=== PATIENT | female | born 1945 | race Caucasian/White ===

== ENCOUNTER 2016-05-22 16:03 | Emergency (ER) | payer BC, MEDICARE ==
[2016-05-22] MEDS ORDERED: IBUPROFEN 600 MG STARTER PACK 4 TAB BTL PO STA (16:51)
[2016-05-22] MEDS ORDERED: IPRATROPIUM-ALBUTEROL 3 ML NEB INHALATION STA (16:51)
--- NOTE | 2016-05-22 17:06 | ED ---
General Adult HPI - General Chief complaint: Shortness of Breath Stated complaint: chest pain/poss pneumonia-sent by Time Seen by Provider: 05/22/16 16:16 Source: patient, family, RN notes reviewed Mode of arrival: wheelchair Limitations: no limitations - History of Present Illness Initial comments: Chief complaint and history of present illness this is a 71-year-old female here with her . She was sent emergency room by her family physician for an x-ray to rule out pneumonia. The patient's been on Augmentin for approximately a week because of an upper respiratory tract infection and sinus infection. Patient also reports that she fell 4 days ago on her right side but started complaining of pain 2 days ago on her left anterior chest wall. No loss of consciousness. - Related Data Home Medications Medication Instructions Recorded Confirmed Amoxic-Pot Clav 500-125 mg 1 tab PO Q12HR 05/22/16 05/22/16 [Augmentin 500-125 mg] Citalopram Hydrobromide [CeleXA] 40 mg PO DAILY 05/22/16 05/22/16 Dicyclomine [Bentyl] 20 mg PO BID 05/22/16 05/22/16 Multivitamin [Multivitamins Adult 1 tab PO DAILY 05/22/16 05/22/16 Gummies] QUEtiapine [SEROquel] 50 mg PO HS 05/22/16 05/22/16 guaiFENesin [Mucinex] 600 mg PO BID PRN 05/22/16 05/22/16 Previous Rx's Medication Instructions Recorded Azithromycin [Zithromax Z-pack] 250 mg PO DIRECTED #6 tab 05/22/16 Ibuprofen [Motrin] 600 mg PO Q6HR PRN #20 tab 05/22/16 Allergies Allergy/AdvReac Type Severity Reaction Status Date / Time No Known Allergies Allergy Verified 05/22/16 16:47 Review of Systems ROS Statement: Those systems with pertinent positive or pertinent negative responses have been documented in the HPI. Review of systems. No headache at this time no stiff neck. She has anterior chest wall pain on the right side. Increases with twisting turning palpation and coughing. No bruises noted early shingles was discussed. Patient does a productive sounding cough no GI/ problems. No neuro deficits. All systems are reviewed. Past medical problems significant for having used a nebulizer years ago but the machine broke. Denies a diagnosis of asthma or COPD but she is wheezing. The patient's other medical problems include GERD, pneumonia and sinus problems. Patient's surgeries include back surgery, cholecystectomy, hysterectomy. She's had EGD and colonoscopy. Other surgeries include a lung biopsy for benign entity. She's had arthroscopic surgery for knee and shoulder. In surgery on her left wrist as well. She denies any ALLERGIES she does smoke strongly encouraged stop his alcohol socially. ROS Other: All systems not noted in ROS Statement are negative. Past Medical History Past Medical History: GERD/Reflux, Pneumonia Additional Past Medical History / Comment(s): SINUS PROBLEMS,DIVERTICULOSIS, VENTRAL HERNIA,OSTEOPOROSIS, GOITER, DDD, History of Any Multi-Drug Resistant Organisms: C-DIFF, ESBL Date of last positivie culture/infection: 01/01/15 ESBL Ecoli; 12/10/14 C.diff- now clear MDRO Source:: Urine ESBL; STOOL-C.diff Past Surgical History: Back Surgery, Cholecystectomy, Hysterectomy Additional Past Surgical History / Comment(s): EGD/COLONOSCOPY, SINUS/NASAL SX, LT SHOULDER SX FOR TORN LIGAMENT, RT KNEE ARTHROSCOPY, LT CARPAL TUNNEL, LUNG BX -NEG, LT WRIST AND TENDON REPAIR POST BREAK.UMBILCAL HERNIA REPAIR, JENNY CATARACTS, 01-01-15 laprascopic ventral hernia repair with mesh Past Anesthesia/Blood Transfusion Reactions: No Reported Reaction Additional Past Anesthesia/Blood Transfusion Reaction / Comment(s): had severe itching after anesthesia with hernia surgery in Dec 2014 Past Psychological History: Anxiety Additional Psychological History / Comment(s): STATES NO PROBLEMS WITYH DEPRESSION AT THIS TIME Smoking Status: Current every day smoker Past Alcohol Use History: None Reported Additional Past Alcohol Use History / Comment(s): HAS SMOKED FOR 50 PLUS YEARS 1PPD, SMOKING CESSATION BOOKLET GIVEN Past Drug Use History: None Reported - Past Family History Father History Unknown: Yes Mother Family Medical History: Dementia, Hypertension General Exam - General Exam Comments Initial Comments: General: The patient is awake and alert, right anterior chest pain with twisting turning coughing and palpation ongoing for 2 days. Vital signs Eye: Pupils are equal, round and reactive to light, extra-ocular movements are intact ; there is normal conjunctiva bilaterally. No signs of icterus. Ears, nose, mouth and throat: There are moist mucous membranes and no oral lesions. Complains of left ear pain no pain with pulling on the ear lobe. Extremely small aural canals. Congenital. Neck: The neck is supple, there is no tenderness . Cardiovascular: There is a regular rate and rhythm. No murmur, rub or gallop is appreciated. Respiratory: Wheezing slightly, right anterior chest wall pain increases with coughing and palpation decreases with splinting. Skin examined no evidence of rash typical of shingles though early shingles was discussed patient is advised to watch closely for changes in the skin over the next week or more. Gastrointestinal: Soft, non-distended, non-tender abdomen without masses or organomegaly noted. There is no rebound or guarding present. No CVA tenderness. Bowel sounds are unremarkable. Back: There is no tenderness to palpation in the midline. There is no obvious deformity. No rashes noted. Musculoskeletal: Normal ROM, no tenderness, There is no pedal edema. There is no calf tenderness or swelling. Sensation intact. Pulses equal bilaterally 2+. Neurological: No neuro deficits Skin: Skin is warm and dry and no rashes or lesions are noted. Early shingles discussed Limitations: no limitations Course Vital Signs 05/22/16 05/22/16 05/22/16 16:08 17:15 17:21 Temperature 99.2 F Pulse Rate 82 68 69 Respiratory 20 Rate Blood Pressure 140/71 O2 Sat by Pulse 98 Oximetry 05/22/16 17:39 Temperature Pulse Rate 72 Respiratory 18 Rate Blood Pressure 143/70 O2 Sat by Pulse 96 Oximetry EKG Findings - EKG Comments: EKG Findings:: EKG was done and reviewed at 1619 showing normal sinus rhythm no acute ST elevation no ectopy no ischemic changes. Rate 73 MI interval 134 QRS [address] Robertson Medical Decision Making - Medical Decision Making Influenza A and B are negative. Chest x-ray was done radiologist reviewed the x-rays his final impression is negative right rib exam. Chest is stable compared to 02/24/2011. As read by Dr. Montez I discussed with the patient and costochondritis, or early pain from shingles. She will watch closely for any rash. She replaced on ibuprofen for pain. She does state splinting the area when coughing and deep breathing helps control the pain. Advised take frequent deep breaths report any productive cough or fever to her family doctor. - Lab Data Lab Results 05/22/16 Range/Units 17:15 Influenza Type A RNA Not Detected (Not Detectd) Influenza Type B (PCR) Not Detected (Not Detectd) Disposition Clinical Impression: Costochondritis Disposition: HOME SELF-CARE Condition: Fair Instructions: Costochondritis (ED), Chronic Bronchitis (ED) Additional Instructions: Take frequent deep breaths, splint the area with her hand or pillow to control discomfort. Take ibuprofen for pain. Call and asked her physician for a new nebulizer machine. Stop smoking. Prescriptions: Azithromycin [Zithromax Z-pack] 250 mg PO DIRECTED #6 tab Ibuprofen [Motrin] 600 mg PO Q6HR PRN #20 tab PRN Reason: Pain Time of Disposition: 18:20
--- NOTE | 2016-05-22 17:17 | XR ---
EXAMINATION TYPE: XR ribs RT w pa chest xray DATE OF EXAM: 05/22/2016 5:12 PM COMPARISON: NONE HISTORY: Right-sided rib pain TECHNIQUE: 5 views FINDINGS: There is no heart failure nor confluent pneumonic infiltrate. Heart is normal. There are no hilar masses. There is no sign of pleural effusion or pneumothorax. The right ribs appear intact. IMPRESSION: Negative right rib exam. Chest is stable compared to 02/24/2011.
[2016-05-22 18:37] VITALS: BP 144/65; PULSE 66; RESP 15; TEMP 98.2
== END 2016-05-22 19:34 | disposition home or self-care (01) ==
LOC: EC 16:03
DX: M94.0 Chondrocostal junction syndrome [Tietze] (principal); J42 Unspecified chronic bronchitis; F41.9 Anxiety disorder, unspecified; F17.200 Nicotine dependence, unspecified, uncomplicated; Z87.01 Personal history of pneumonia (recurrent); Z79.899 Other long term (current) drug therapy
CPT/HCPCS: 87502; 93005; 94640; 99285

== ENCOUNTER → 2016-07-03 | Outpatient (CLI) | payer BC, MEDICARE ==
--- NOTE | 2016-07-03 15:14 | US ---
EXAMINATION TYPE: US thyroid st tissue head/neck DATE OF EXAM: 07/03/2016 2:35 PM COMPARISON: 10/15/2014 CLINICAL HISTORY: E04.1 Thyroid Nodule. GLAND SIZE: Right Lobe: 4.5 x 1.6 x 1.6 cm Overall Parenchyma: heterogenous Left Lobe: 3.4 x 1.3 x 1.4 cm Overall Parenchyma: heterogeneous Isthmus Thickness: 0.2 cm NODULES RIGHT: # of nodules measured on right: 2 1. 0.7 X 0.5 x 0.4 cm hypoechoic solid nodule at the upper pole with well-defined margins. This nod ule is wider than tall and shows intranodular vascularity. Prior size: 0.7 x 0.6 x 0.4 cm 2. 0.7 X 0.6 x 0.5 cm hypoechoic solid nodule at the mid pole with poorly defined margins. This nod ule is wider than tall and shows no intranodular vascularity. Prior size: 0.6 x 0.7 x 0.3 cm LEFT: # of nodules measured on left: 1 1. 0.9 X 0.8 x 0.6 cm hypoechoic solid nodule at the mid pole with well-defined margins. This nodu le is wider than tall and shows no intranodular vascularity. Prior size: 0.9 x 0.8 x 0.5 cm ISTHMUS: # of nodules measured in the isthmus: 0 Bilateral neck scanned, no evidence of lymphadenopathy. Multiple small nodules seen, measured largest. Stable appearing nodules. IMPRESSION: STABLE MULTINODULAR GOITER.
== END | disposition home or self-care (01) ==
LOC: RADUSWWP 13:50
PROVIDERS: ATTEND Internal Medicine
DX: E04.2 Nontoxic multinodular goiter (principal)
CPT/HCPCS: 76536

== ENCOUNTER → 2016-08-30 | Outpatient (CLI) | payer BC, MEDICARE ==
--- NOTE | 2016-08-30 11:14 | XR ---
EXAMINATION TYPE: XR shoulder complete RT DATE OF EXAM: 08/30/2016 CLINICAL HISTORY: Right shoulder pain, lump over acromioclavicular joint per patient TECHNIQUE: Three views of the right shoulder are obtained. COMPARISON: None. FINDINGS: There is no acute fracture/dislocation evident in the right shoulder. Subchondral cystic c hange superolateral humeral head is seen. There is prominent bone or osteophyte from the superior dis juanis clavicle. There are 6 mm well-corticated ossific density superior aspect of acromioclavicular neida nt may reflect old trauma or heterotopic ossification. The visualized ribs are intact and unremarkab le. IMPRESSION: There is no acute fracture or dislocation in the right shoulder.
== END | disposition home or self-care (01) ==
LOC: RADXRMAIN 10:32
PROVIDERS: ATTEND Internal Medicine
DX: R52 Pain, unspecified (principal)

== ENCOUNTER → 2016-12-08 | Outpatient (CLI) | payer BC, MEDICARE | END | disposition home or self-care (01) | LOC: LABWHC1 12:00 | PROVIDERS: ATTEND Surgery | DX: E04.1 Nontoxic single thyroid nodule (principal) | CPT/HCPCS: 36415; 84439; 84443; 84481 ==

== ENCOUNTER → 2017-01-08 | Outpatient (CLI) | payer BC, MEDICARE ==
[2017-01-08 11:58] LABS: Blood Urea Nitrogen 19 mg/dL (7-17); Non-African American GFR(MDRD) >60 (>60 ml/min/1.73 sqM)
--- NOTE | 2017-01-08 14:07 | CT ---
EXAMINATION TYPE: CT abdomen pelvis w con DATE OF EXAM: 01/08/2017 COMPARISON: Previous 10/15/2015 HISTORY: patient complains of epigastric to umbilicus pain. Patient has a history of prior double he rnia repair with mesh placement ~[address] DLP: 553.9 mGycm Automated exposure control for dose reduction was used. TECHNIQUE: Helical acquisition of images from the lung bases through the pelvis have been completed. CONTRAST: Performed with Oral Contrast and with IV Contrast, patient injected with 100 mL of Omnipaque 300. FINDINGS: Postop changes present along the anterior abdominal wall. The appearance is stable as eran red to prior exam. LUNG BASES: No significant abnormality is appreciated. AORTA: Atheromatous changes are present within the abdominal aorta.. LIVER/GB: Patient is post cholecystectomy are mild prominent bile ducts present likely due to postcho lecystectomy change. PANCREAS: No significant abnormality is seen. SPLEEN: No significant abnormality is seen. ADRENALS: No significant abnormality is seen. KIDNEYS: Small cortical cyst suspected in the parapelvic region on the left. No hydronephrosis bilate rally. REPRODUCTIVE ORGANS: No significant abnormality is seen BOWEL: Extensive diverticular changes are present within the sigmoid colon. Wall thickening at this level may be due to lack of distention or muscular hypertrophy. FREE AIR: No Free Air visible. ASCITES: None visible. PELVIC ADENOPATHY: None visualized. RETROPERITONEAL ADENOPATHY: No Retroperitoneal Adenopathy visible. URINARY BLADDER: No significant abnormality is seen. OSSEOUS STRUCTURES: Degenerative disc changes in the visualized spine.. IMPRESSION: DIVERTICULOSIS. POSTOP CHANGES. ADDITIONAL FINDINGS ABOVE.
== END | disposition home or self-care (01) ==
LOC: RADCTMAIN 11:01
PROVIDERS: ATTEND Surgery
DX: K57.30 Diverticulosis of large intestine without perforation or abscess without bleeding (principal); Z98.890 Other specified postprocedural states
CPT/HCPCS: 82565; 84520; 74177; 36415; Q9967

== ENCOUNTER → 2017-11-15 | Outpatient (CLI) | payer BC, MEDICARE ==
--- NOTE | 2017-11-16 07:05 | US ---
EXAMINATION TYPE: US kidneys/renal and bladder DATE OF EXAM: 11/15/2017 COMPARISON: NONE CLINICAL HISTORY: M54.5 LOW BACK PAIN. left flank pain EXAM MEASUREMENTS: Right Kidney: 10.8 x 4.1 x 5.7 cm Left Kidney: 11.5 x 4.6 x 4.8 cm Right Kidney: No hydronephrosis or masses seen Left Kidney: No hydronephrosis or masses seen Bladder: wnl Bilateral Jets seen: Yes There is no evidence for hydronephrosis at this point in time. No nephrolithiasis is seen. No abisai s are identified. The urinary bladder is anechoic. Bilateral ureteral jets are seen. No cortical th inning. Cortical medullary differentiation is maintained. IMPRESSION: No hydronephrosis or nephrolithiasis. No focal renal mass. No sonographic sequela of medical renal di sease.
== END | disposition home or self-care (01) ==
LOC: RADUSWWP 15:56
PROVIDERS: ATTEND Family Medicine
DX: M54.5 Low back pain (principal)
CPT/HCPCS: 76770

== ENCOUNTER → 2017-12-05 | Outpatient (CLI) | payer BC, MEDICARE ==
--- NOTE | 2017-12-05 08:56 | US ---
EXAMINATION TYPE: US pelvis complete transvag DATE OF EXAM: 12/05/2017 COMPARISON: NONE CLINICAL HISTORY: 72-year-old female Pelvic pain. Cramping, partial hysterectomy 1984 TECHNIQUE: Transabdominal sonographic images of the pelvis were acquired. Transvaginal sonographic images were medically necessary to better assess the following anatomy: ovaries Date of LMP: unknown FINDINGS: Uterus: Surgically absent Vaginal cuff = 0.6cm Right Ovary: unable to visualize Left Ovary: unable to visualize The ovaries are obscured by bowel. No evident adnexal abnormality or cul-de-sac free fluid. IMPRESSION: 1. Status post hysterectomy. 2. The ovaries are obscured by bowel. 3. No pelvic free fluid.
--- NOTE | 2017-12-05 10:38 | US ---
EXAMINATION TYPE: US thyroid st tissue head/neck DATE OF EXAM: 12/05/2017 COMPARISON: NONE CLINICAL HISTORY: 72-year-old female E04.1 Thyroid nodule, R10.2 Pelvic pain. History of thyroid nod ules GLAND SIZE: Right Lobe: 4.3 x 1.2 x 1.7 cm Overall Parenchyma: heterogenous Left Lobe: 3.6 x 1.3 x 1.1 cm Overall Parenchyma: heterogeneous Isthmus Thickness: 0.2 cm NODULES RIGHT: # of nodules measured on right: 2 1. 0.7 X 0.4 x 0.5 cm hypoechoic solid nodule at the upper pole with well-defined margins; . This nodule is wider than tall and shows intranodular vascularity. Prior size: 0.7 x 0.5 x 0.4 cm 2. 0.7 X 0.5 x 0.6 cm hypoechoic solid nodule at the mid pole with well-defined margins; . This nod ule is wider than tall and shows no intranodular vascularity. Prior size: 0.7 x 0.6 x 0.5 cm LEFT: # of nodules measured on left: 1 1. 1.0 x 0.7 x 0.8 cm hypoechoic solid nodule at the mid pole with well-defined margins; . This no dule is wider than tall and shows intranodular vascularity. Prior size: 0.9 x 0.8 x 0.6 cm ISTHMUS: # of nodules measured in the isthmus: 0 Bilateral neck scanned, no evidence of lymphadenopathy. IMPRESSION: Multinodular thyroid gland. 2 dominant nodules on the right measures 7 mm, unchanged. Dominant nodule in the left is relatively unchanged measuring 10 x 8 mm versus 9 x 8 mm, previously.
== END | disposition home or self-care (01) ==
LOC: RADUSWWP 06:54
PROVIDERS: ATTEND Family Medicine
DX: E04.2 Nontoxic multinodular goiter (principal); R10.2 Pelvic and perineal pain; Z90.710 Acquired absence of both cervix and uterus
CPT/HCPCS: 76536; 76830; 76856

== ENCOUNTER → 2017-12-26 | Outpatient (CLI) | payer BC, MEDICARE ==
--- NOTE | 2017-12-27 11:47 | MM ---
Reason for exam: screening (asymptomatic). Last mammogram was performed 1 year and 11 months ago. History: Patient is postmenopausal. Physical Findings: A clinical breast exam by your physician is recommended on an annual basis and results should be correlated with mammographic findings. MG 3D Screening Mammo W/Cad Bilateral CC and MLO view(s) were taken. Prior study comparison: January 25, 2016, bilateral MG 3d screening mammo w/cad. There are scattered fibroglandular densities. Focal asymmetry 12-1 o'clock central left breast partially disperses on 3D and is more defined from prior. Further evaluation recommended. ASSESSMENT: Incomplete: need additional imaging evaluation, BI-RAD 0 RECOMMENDATION: Special view mammogram of the left breast. If lesion persists on supplemental views, image directed ultrasound is recommended. [facility] will attempt to contact patient to return for supplemental views and ultrasound if indicated.
--- NOTE | 2018-01-01 14:56 | BD ---
EXAMINATION TYPE: Axial Bone Density DATE OF EXAM: 12/26/2017 COMPARISON: NONE CLINICAL HISTORY: Height: 63 Weight: 155 FRAX RISK QUESTIONS: Alcohol (3 or more units per day): no Family History (Parent hip fracture): no Glucocorticoids (More than 3mos): no (Ex: prednisone, prednisolone, methylprednisolone, dexamethasone, and hydrocortisone). History of Fracture in Adulthood: yes Secondary Osteoporosis: 1. Type 1 Diabetes: no 2. Hyperthyroidism: no 3. Menopause before 45: yes 4. Malnutrition: no 5. Chronic liver disease: no Rheumatoid Arthritis: no Current Tobacco Use: yes RISK FACTORS HISTORY OF: History of Wrist Fracture: left wrist When: 10 years ago Family History of Osteoporosis: no Active: yes Diet low in dairy products/other sources of calcium: no Postmenopausal woman: partial hysterectomy age 38 MEDICATIONS: celexa, lumotriquin, Quetiapine Additional History: EXAM MEASUREMENTS: Bone mineral densitometry was performed using the TOPSEC System. Bone mineral density as measured about the Lumbar spine is: ----- L1-L4(G/cm2): 1.107 T Score Values are as follows: ----- L2: -1.7 ----- L3: -0.6 ----- L4: 0.5 ----- L1-L4: -0.6 Bone mineral density : baseline Bone mineral density about the R hip (g/cm2): 0.694 Bone mineral density about the L hip (g/cm2): 0.732 T Score values are as follows: -----R Neck: -2.5 -----L Neck: -2.2 -----R Total: -2.0 -----L Total: -1.9 Bone mineral density : baseline IMPRESSION: NOTE: T-SCORE=SD OF THE YOUNG ADULT MEAN.
== END | disposition home or self-care (01) ==
LOC: RADMAMWWP 07:18
PROVIDERS: ATTEND Family Medicine
DX: Z12.31 Encounter for screening mammogram for malignant neoplasm of breast (principal); M81.0 Age-related osteoporosis without current pathological fracture; Z78.0 Asymptomatic menopausal state
CPT/HCPCS: 77063; 77067; 77080

== ENCOUNTER → 2018-01-23 | Outpatient (CLI) | payer BC, MEDICARE ==
--- NOTE | 2018-01-23 10:33 | MM ---
Reason for exam: additional evaluation requested from abnormal screening. Last mammogram was performed 1 month ago. History: Patient is postmenopausal. Physical Findings: Nurse did not find any significant physical abnormalities on exam. MG 3D Work Up W/Cad LT Spot compression CC, spot compression MLO, and LM view(s) were taken of the left breast. Prior study comparison: December 26, 2017, bilateral MG 3d screening mammo w/cad. January 25, 2016, bilateral MG 3d screening mammo w/cad. There are scattered fibroglandular densities. There is no discrete abnormality. These results were verbally communicated with the patient and result sheet given to the patient on 01/23/18. ASSESSMENT: Negative, BI-RAD 1 RECOMMENDATION: Return to routine screening mammogram schedule for both breasts.
== END | disposition home or self-care (01) ==
LOC: RADMAMWWP 08:54
PROVIDERS: ATTEND Family Medicine
DX: R92.8 Other abnormal and inconclusive findings on diagnostic imaging of breast (principal)
CPT/HCPCS: 77061; 77065

== ENCOUNTER → 2018-02-07 | Outpatient (CLI) | payer BC, MEDICARE ==
--- NOTE | 2018-02-07 13:04 | CT ---
EXAMINATION TYPE: CT abdomen pelvis wo con DATE OF EXAM: 02/07/2018 COMPARISON: 01/08/2017 INDICATION: Recurrent ventral hernia. DLP: 477.1 mGycm, Automated exposure control for dose reduction was used. CONTRAST: 0 mL of Isovue 300. Study performed without Oral Contrast TECHNIQUE: Axial images were obtained from above the diaphragm to the pubic rami in the axial plane a t 5 mm thick sections. Reconstructed images are reviewed on the computer in the coronal plane. FINDINGS: Limited CT sections are obtained the lung bases. The lung bases are clear. CT ABDOMEN: Liver: Normal Spleen: Normal Pancreas: Normal Adrenal glands: The adrenal glands are normal. Gallbladder: Decompressed. Correlate with patient's surgical history. This is poorly visualized. Kidneys: No masses are evident. No hydronephrosis is present. No cysts are present. No renal stone s are identified. Aorta: Vascular calcification is within the aorta. Inferior vena cava: Normal. CT PELVIS: Loops of bowel within the abdomen and pelvis are normal. Study is performed without oral contrast limiting the evaluation. There are a few scattered diverticuli greater in the sigmoid colon region. Appendix: Normal as visualized. Urinary bladder: Normal. Genitourinary structures: Uterus and ovaries are absent. Vaginal cuff region appears unremarkable. Osseous structures: No suspicious lytic or sclerotic lesions. Facet hypertrophy is noted lower lumbar spine. IMPRESSIONS: 1. Stable diverticulosis without acute diverticulitis.
== END | disposition home or self-care (01) ==
LOC: RADCTMAIN 08:13
PROVIDERS: ATTEND Surgery Plastic and Reconstructive Surgery
DX: K57.90 Diverticulosis of intestine, part unspecified, without perforation or abscess without bleeding (principal); K43.2 Incisional hernia without obstruction or gangrene
CPT/HCPCS: 74176

== ENCOUNTER → 2020-07-15 | Outpatient (CLI) | payer MEDICARE ==
--- NOTE | 2020-07-15 10:11 | CT ---
EXAMINATION TYPE: CT abdomen pelvis w con DATE OF EXAM: 07/15/2020 HISTORY: Diverticulitis sigmoid colon per order. CT DLP: 784.5mGycm Automated Exposure Control for Dose Reduction was Utilized. CONTRAST: CT scan of the abdomen and pelvis is performed with IV Contrast, patient injected with 100 mL of Isov ue 300. COMPARISON: CT abdomen and pelvis February 07, 2018 FINDINGS: LUNG BASES: Slightly elevated left hemidiaphragm is redemonstrated. LIVER/GB: Gallbladder not seen and presumed surgically absent. PANCREAS: No significant abnormality is seen. SPLEEN: No significant abnormality is seen. ADRENALS: Stable thickening to both adrenal glands favoring benign lipid rich hyperplasia. KIDNEYS: Occasional small simple appearing thin-walled cyst left kidney for reference axial image 23 series 5. Symmetric cortical medullary uptake and excretion without hydronephrosis seen bilaterally. BOWEL: The oral contrast reaches level of cecum. This makes evaluation of distal bowel slightly subop timal. No suspicious small or large bowel dilatation. Normal-appearing appendix in the right upper pe lvis. Sigmoid colonic diverticulosis redemonstrated. No CT evidence for acute diverticulitis currentl y. UTERUS/ADNEXA: Uterus is surgically absent. Scattered bilateral pelvic phleboliths. Large dystrophic calcification or phlebolith axial image 82 unchanged from prior. LYMPH NODES: No greater than 1cm abdominal or pelvic lymph nodes are appreciated. OSSEOUS STRUCTURES: [id number] disc space narrowing and vacuum disc phenomenon L5-S1 level. M ultilevel mild to moderate spurring and disc space narrowing and multilevel vacuum disc phenomenon. M ultilevel facet arthropathy in the mid to lower lumbar spine. OTHER: No significant additional abnormality is seen. IMPRESSION: Sigmoid colonic diverticulosis without CT evidence for acute diverticulitis currently. No suspicious acute findings.
== END | disposition home or self-care (01) ==
LOC: RADCTMAIN 07:45
PROVIDERS: ATTEND Surgery Plastic and Reconstructive Surgery
DX: K57.30 Diverticulosis of large intestine without perforation or abscess without bleeding (principal)
CPT/HCPCS: 82565; 84520; 74177; 36415; Q9967

== ENCOUNTER → 2020-08-02 | Outpatient (CLI) | payer MEDICARE ==
--- NOTE | 2020-08-02 08:19 | US ---
EXAMINATION TYPE: US thyroid st tissue head/neck DATE OF EXAM: 08/02/2020 COMPARISON: US CLINICAL HISTORY: E04.2 thyroid nodule.. F/U, pt states feeling of something in throat GLAND SIZE: Right Lobe: 4.1 x 1.7 x 1.6 cm Overall Parenchyma: heterogenous Left Lobe: 4.1 x 1.4 x 1.0 cm Overall Parenchyma: heterogeneous Isthmus Thickness: 0.2 cm NODULES RIGHT: # of nodules measured on right: 2 1. 0.7 X 0.4 x 0.5 cm, upper, solid or almost completely solid, hypoechoic nodule, which is wider t petersen tall, with smooth margins, without echogenic foci. Prior size: 0.7 x 0.4 x 0.5 cm 2. 0.6 X 0.4 x 0.8 cm, mid, solid or almost completely solid, isoechoic nodule, which is wider than tall, with ill-defined margins, without echogenic foci. Prior size: 0.7 x 0.5 x 0.6 cm LEFT: # of nodules measured on left: 1 1. 0.8 X 0.6 x 0.7 cm, mid, solid or almost completely solid, hyperechoic nodule, which is wider th an tall, with smooth margins, without echogenic foci. Prior size: 1.0 x 0.7 x 0.8 cm Bilateral neck scanned, no evidence of lymphadenopathy. Stable nodules bilaterally. IMPRESSION: Stable subcentimeter bilateral thyroid nodules. Correlate for thyroiditis. 2017 ACR TI-RADS LEVEL: TR-RADS 2 - Not Suspicious: No FNA *Highest TI-RADS level nodule reported
== END | disposition home or self-care (01) ==
LOC: RADUSWWP 07:38
PROVIDERS: ATTEND Surgery Plastic and Reconstructive Surgery
DX: E04.2 Nontoxic multinodular goiter (principal)
CPT/HCPCS: 76536

== ENCOUNTER 2020-08-25 09:15 | Day surgery (SDC) | payer MEDICARE ==
[2020-08-23 09:48] VITALS: BMI 29.0
--- NOTE | 2020-08-25 08:09 | P.GSHP ---
History of Present Illness H&P Date: 08/25/20 CHIEF COMPLAINT: GERD HISTORY OF PRESENT ILLNESS: The patient is a 75-year-old female who presents reports gastroesophageal reflux disease. Upper endoscopy was offered for further evaluation and management. PAST MEDICAL HISTORY: Please see list. PAST SURGICAL HISTORY: Please see list. MEDICATIONS: Please see list. ALLERGIES: Please see list. SOCIAL HISTORY: No illicit drug use FAMILY HISTORY: No reports of Crohn disease or ulcerative colitis. REVIEW OF ORGAN SYSTEMS: CONSTITUTIONAL: No reports of fevers or chills. GI: Denies any blood in stools or constipation. PHYSICAL EXAM: VITAL SIGNS: Stable GENERAL: Well-developed and pleasant in no acute distress. HEENT: No scleral icterus. Extraocular movements grossly intact. Moist buccal mucosa. NECK: Supple without lymphadenopathy. CHEST: Unlabored respirations. Equal bilateral excursions. CARDIOVASCULAR: Regular rate and rhythm. Distal 2+ pulses. ABDOMEN: Soft, nondistended. MUSCULOSKELETAL: No clubbing, cyanosis, or edema. ASSESSMENT: 1. Gastroesophageal reflux disease PLAN: 1. Recommend proceeding with an upper endoscopy Past Medical History Past Medical History: GERD/Reflux, Pneumonia Additional Past Medical History / Comment(s): SINUS PROBLEMS,DIVERTICULOSIS, VENTRAL HERNIA,OSTEOPOROSIS, GOITER, DDD, History of Any Multi-Drug Resistant Organisms: C-DIFF, ESBL Date of last positivie culture/infection: 01/01/15 ESBL Ecoli; 12/10/14 C.diff-now clear MDRO Source:: Urine ESBL; STOOL-C.diff Past Surgical History: Back Surgery, Cholecystectomy, Hysterectomy, Orthopedic Surgery Additional Past Surgical History / Comment(s): EGD/COLONOSCOPY, SINUS/NASAL SX, LT SHOULDER SX FOR TORN LIGAMENT, RT KNEE ARTHROSCOPY, LT CARPAL TUNNEL, LUNG BX-NEG, LT WRIST AND TENDON REPAIR POST BREAK.UMBILCAL HERNIA REPAIR, JENNY CATARACTS, 01-01-15 laprascopic ventral hernia repair with mesh Past Anesthesia/Blood Transfusion Reactions: Previous Problems w/ Anesthesia, Postoperative Nausea & Vomiting (PONV) Additional Past Anesthesia/Blood Transfusion Reaction / Comment(s): had severe itching after anesthesia with hernia surgery in Dec 2014 Smoking Status: Current every day smoker - Past Family History Father History Unknown: Yes Mother Family Medical History: Dementia, Hypertension Medications and Allergies Home Medications Medication Instructions Recorded Confirmed Type Citalopram Hydrobromide [CeleXA] 40 mg PO HS 05/22/16 08/23/20 History Multivitamin [Multivitamins Adult 1 tab PO DAILY 05/22/16 08/23/20 History Gummies] QUEtiapine [SEROquel] 100 mg PO HS 05/22/16 08/23/20 History lamoTRIgine 100 mg PO HS 08/23/20 08/23/20 History Allergies Allergy/AdvReac Type Severity Reaction Status Date / Time No Known Allergies Allergy Verified 08/23/20 09:38
[~2020-08-25 09:15] MED LIST: LACTATED RINGERS 1,000 ML IV SCH; LIDOCAINE 1% (10MG/ML) FOR IV START INTRADERMA PRN
[2020-08-25 09:54] VITALS: RESP 16; TEMP 98.1
[2020-08-25] MEDS ORDERED: PROPOFOL 10 MG/ML 20 ML VIAL IV ONE (10:39)
[2020-08-25] MEDS ORDERED: LIDOCAINE 1% INJ 10MG/ML (20 ML MDV) ONE (10:39)
--- NOTE | 2020-08-25 11:15 | P.PCN ---
Date of Procedure: 08/25/20 Description of Procedure: PREOPERATIVE DIAGNOSIS: Gastroesophageal reflux disease Epigastric abdominal pain Dysphagia POSTOPERATIVE DIAGNOSIS: Upper esophageal stenosis Gastroesophageal reflux disease with esophagitis Wolf's esophagus Gastritis Duodenitis Diaphragmatic hiatal hernia OPERATION: Esophagogastroduodenoscopy with rigid dilator over the guidewire 54 Fr with dilation Esophagogastroduodenoscopy with cold forceps biopsies esophagus, antrum, duodenum SURGEON: Millicent Mcneal MD ANESTHESIA: MAC. INDICATIONS: The patient is a 75-year-old female who presents with a history of gastroesophageal reflux disease and dysphagia. Benefits and risks of the procedure were described. Informed consent was obtained. DESCRIPTION: The patient was brought into the endoscopy suite and laid in the left lateral decubitus position. After a timeout was confirmed, the procedure was initiated. An Olympus gastroscope was passed into the posterior oropharynx where an upper esophageal stenosis was identified. The scope was passed down to the distal esophagus. To address the upper esophageal stenosis, rigid dilator over guidewire was selected. Next using an [place]er rigid dilator, a guidewire was placed through the gastroscope. Next the scope was withdrawn. A 54-Romansh rigid [place]er dilator was passed carefully along the posterior oropharynx to 45 cm and left in place for 2-3 minutes stretch. The dilator was withdrawn including the guidewire. The scope was reentered along the posterior oropharynx with no findings of full- thickness tear of the upper esophageal sphincter. Additional findings below. Within the stomach, duodenitis, gastritis, and features of Wolf's were pasquale ntified with cold forceps biopsies obtained for each region. The lower esophageal valve was evaluated with Hill grade 3 lower esophageal valve. LA grade D erosive esophagitis was identified. No full-thickness injury was encountered. The GI tract was desufflated. The patient tolerated the procedure well. FINDINGS: Upper esophageal stenosis dilated 54-Romansh rigid dilator Diaphragmatic hiatus at 40 cm from the incisors Squamocolumnar junction 35 cm from the incisors. Gastritis with biopsies obtained Duodenitis with cold forceps biopsies obtained Reflux esophagitis for Wolf's obtained LA grade D erosive esophagitis Hill grade 3 lower esophageal valve. RECOMMENDATIONS: Upper endoscopy as needed Plan - Discharge Summary Discharge Rx Participant: No New Discharge Prescriptions: Continue QUEtiapine [SEROquel] 100 mg PO HS Citalopram Hydrobromide [CeleXA] 40 mg PO HS Multivitamin [Multivitamins Adult Gummies] 1 tab PO DAILY lamoTRIgine 100 mg PO HS Discharge Medication List Citalopram Hydrobromide [CeleXA] 40 mg PO HS 05/22/16 [History] Multivitamin [Multivitamins Adult Gummies] 1 tab PO DAILY 05/22/16 [History] QUEtiapine [SEROquel] 100 mg PO HS 05/22/16 [History] lamoTRIgine 100 mg PO HS 08/23/20 [History] Follow up Appointment(s)/Referral(s): Millicent Mcneal MD [STAFF PHYSICIAN] - 08/31/20 Patient Instructions/Handouts: *[facility]gery [facility] - (Anesthesia) Endoscopy Discharge Instructions, Wolf Esophagus (DC), Duodenitis (DC), Upper Endoscopy (DC), Esophageal Dilation (DC) Activity/Diet/Wound Care/Special Instructions: Recommend salt water gargle twice daily for 5 days. Liquid diet today. Soft diet tomorrow. Discharge Disposition: HOME SELF-CARE
[2020-08-25 11:49] VITALS: BP 149/75; PULSE 63
== END 2020-08-25 11:55 | disposition home or self-care (01) ==
LOC: ORWHC2ENDO 09:15
PROVIDERS: ATTEND Surgery Plastic and Reconstructive Surgery
DX: K21.00 Gastro-esophageal reflux disease with esophagitis, without bleeding (principal); K29.80 Duodenitis without bleeding; K29.50 Unspecified chronic gastritis without bleeding; K22.2 Esophageal obstruction; K22.70 Barrett's esophagus without dysplasia; K44.9 Diaphragmatic hernia without obstruction or gangrene; K57.90 Diverticulosis of intestine, part unspecified, without perforation or abscess without bleeding; F41.9 Anxiety disorder, unspecified; M81.0 Age-related osteoporosis without current pathological fracture; E04.9 Nontoxic goiter, unspecified; Z86.19 Personal history of other infectious and parasitic diseases; Z90.49 Acquired absence of other specified parts of digestive tract; Z90.710 Acquired absence of both cervix and uterus; F17.210 Nicotine dependence, cigarettes, uncomplicated; Z98.890 Other specified postprocedural states; Z98.42 Cataract extraction status, left eye; Z97.2 Presence of dental prosthetic device (complete) (partial); Z87.01 Personal history of pneumonia (recurrent); Z98.41 Cataract extraction status, right eye; Z81.8 Family history of other mental and behavioral disorders; Z82.49 Family history of ischemic heart disease and other diseases of the circulatory system; Z79.899 Other long term (current) drug therapy
CPT/HCPCS: 88305; 43239; 43248; J2001; J2704; 43249

== ENCOUNTER → 2020-08-27 | Outpatient (CLI) | payer MEDICARE ==
--- NOTE | 2020-08-27 09:14 | BD ---
EXAMINATION TYPE: Axial Bone Density DATE OF EXAM: 08/27/2020 COMPARISON: 12/26/2017 CLINICAL HISTORY: Height: 62. IN Weight: 161 LBS FRAX RISK QUESTIONS: History of Fracture in Adulthood: AGE 63 LEFT WRIST Secondary Osteoporosis: 3. Menopause before 45: PARTAL HYST AGE 39 RISK FACTORS HISTORY OF: History of Wrist Fracture: LEFT WRIST AGE 63 Surgery to Wrist (left): AGE 63 Active: YES Postmenopausal woman: PARTIAL HYST AGE 39 MEDICATIONS: Additional Medications: VIT D, CELEXA, CITALOPRAM, LAMOTRIGINE, QUETIAPINE, FLUOCINONIDE,HYDROCORT, B QI TRI, EXAM MEASUREMENTS: Bone mineral densitometry was performed using the [employer] System. Bone mineral density as measured about the Lumbar spine is: ----- L1-L4(G/cm2): 1.555 T Score Values are as follows: ----- L2: -0.5 ----- L3: -1.2 ----- L4: 0.5 ----- L1-L4: -0.2 Bone mineral density has: Increased 1.2% since study of: 12/26/2017 Bone mineral density about the R hip (g/cm2): 0.699 Bone mineral density about the L hip (g/cm2): 0.706 T Score values are as follows: -----R Neck: -2.4 -----L Neck: -2.4 -----R Total: -2.1 -----L Total: -1.9 Bone mineral density has: Decreased -0.7% since study of: 12/26/2017 IMPRESSION: Osteopenia (T Score between -2.5 and -1) remains present. There remains slightly increased risk of fracture and the patient may be considered for treatment. Re-Screen 2-5 years. NOTE: T-SCORE=SD OF THE YOUNG ADULT MEAN.
--- NOTE | 2020-08-31 11:12 | MM ---
Reason for exam: screening (asymptomatic). Last mammogram was performed 2 years and 7 months ago. History: Patient is postmenopausal. Physical Findings: A clinical breast exam by your physician is recommended on an annual basis and results should be correlated with mammographic findings. MG 3D Screening Mammo W/Cad Bilateral CC and MLO view(s) were taken. Prior study comparison: January 23, 2018, left breast MG 3d work up w/cad LT. December 26, 2017, bilateral MG 3d screening mammo w/cad. Finding #1: There is a 7 mm equal density (isodense), irregular mass in the upper quadrant, central position of the left breast. Finding #2: There are typically benign calcifications in the right breast. ASSESSMENT: Incomplete: need additional imaging evaluation, BI-RAD 0 RECOMMENDATION: Special view mammogram of the left breast. If lesion persists on supplemental views, image directed ultrasound is recommended. [facility] will attempt to contact patient to return for supplemental views and ultrasound if indicated.
== END | disposition home or self-care (01) ==
LOC: RADMAMWWP 08:09
PROVIDERS: ATTEND Family Medicine
DX: Z12.31 Encounter for screening mammogram for malignant neoplasm of breast (principal); Z13.820 Encounter for screening for osteoporosis; Z78.0 Asymptomatic menopausal state; M85.89 Other specified disorders of bone density and structure, multiple sites
CPT/HCPCS: 77063; 77067; 77080

== ENCOUNTER → 2020-09-15 | Outpatient (CLI) | payer MEDICARE ==
--- NOTE | 2020-09-16 14:27 | MM ---
Reason for exam: additional evaluation requested from abnormal screening. Last mammogram was performed 1 month ago. History: Patient is postmenopausal. Physical Findings: Nurse did not find any significant physical abnormalities on exam. MG 3D Work Up W/Cad LT Spot compression CC, spot compression MLO, and LM view(s) were taken of the left breast. Prior study comparison: August 27, 2020, bilateral MG 3d screening mammo w/cad. January 23, 2018, left breast MG 3d work up w/cad LT. There are scattered fibroglandular densities. Left breast asymmetry not changed since 2018 and presumed benign. These results were verbally communicated with the patient and result sheet given to the patient on 09/15/20. ASSESSMENT: Benign, BI-RAD 2 RECOMMENDATION: Return to routine screening mammogram schedule for both breasts.
== END | disposition home or self-care (01) ==
LOC: RADMAMWWP 07:12
PROVIDERS: ATTEND Family Medicine
DX: N64.89 Other specified disorders of breast (principal)
CPT/HCPCS: 77065; G0279; 77061

== ENCOUNTER → 2021-06-02 | Day surgery (SDC) | payer MEDICARE ==
[2021-05-31 15:23] VITALS: BMI 27.0
[~2021-06-02] MED LIST changes: +LIDOCAINE 1% INJ 10MG/ML (20 ML MDV) ONE; +PROPOFOL 10 MG/ML 20 ML VIAL IV ONE
--- NOTE | 2021-06-02 07:49 | P.GSHP ---
History of Present Illness H&P Date: 06/02/21 CHIEF COMPLAINT: Colon screen HISTORY OF PRESENT ILLNESS: The patient is a 76-year-old female who presents for colon screen. Lower endoscopy was offered for further evaluation and management. PAST MEDICAL HISTORY: Please see list. PAST SURGICAL HISTORY: Please see list. MEDICATIONS: Please see list. ALLERGIES: Please see list. SOCIAL HISTORY: No illicit drug use FAMILY HISTORY: No reports of Crohn disease or ulcerative colitis. REVIEW OF ORGAN SYSTEMS: CONSTITUTIONAL: No reports of fevers or chills. PHYSICAL EXAM: VITAL SIGNS: Stable GENERAL: Well-developed pleasant in no acute distress. HEENT: No scleral icterus. Extraocular movements grossly intact. Moist buccal mucosa. NECK: Supple without lymphadenopathy. CHEST: Unlabored respirations. Equal bilateral excursions. CARDIOVASCULAR: Regular rate and rhythm. Distal 2+ pulses. ABDOMEN: Soft, nontender, nondistended. MUSCULOSKELETAL: No clubbing, cyanosis, or edema. ASSESSMENT: 1. Colon screen. PLAN: 1. Recommend proceeding with a lower endoscopy Past Medical History Past Medical History: Osteoarthritis (OA), Thyroid Disorder Additional Past Medical History / Comment(s): DIVERTICULOSIS,OSTEOPOROSIS, THYROID NODULES & GOITER, DDD , C-DIFF (2014) History of Any Multi-Drug Resistant Organisms: C-DIFF, ESBL Date of last positivie culture/infection: 01/01/15 ESBL Ecoli MDRO Source:: Urine ESBL Past Surgical History: Back Surgery, Cholecystectomy, Hysterectomy, Orthopedic Surgery Additional Past Surgical History / Comment(s): EGD/COLONOSCOPY, SINUS/NASAL SX, LT SHOULDER SX FOR TORN LIGAMENT, RT KNEE ARTHROSCOPY, LT CARPAL TUNNEL, LUNG BX-NEG, LT WRIST AND TENDON REPAIR POST BREAK.UMBILCAL HERNIA REPAIR, JENNY CATARACTS, 01-01-15 laprascopic ventral hernia repair with mesh, LOWER BACK SURGERY(1986) Past Anesthesia/Blood Transfusion Reactions: Previous Problems w/ Anesthesia, Postoperative Nausea & Vomiting (PONV) Additional Past Anesthesia/Blood Transfusion Reaction / Comment(s): had severe itching after anesthesia with hernia surgery in Dec 2014 Past Psychological History: Anxiety, Depression Additional Psychological History / Comment(s): . Smoking Status: Current every day smoker Past Alcohol Use History: None Reported Additional Past Alcohol Use History / Comment(s): SMOKES 1/2PPD, HX 1PPD, HAS SMOKED FOR 50 PLUS YEARS. Past Drug Use History: None Reported Additional Drug Use History / Comment(s): CBD OIL SUBLINGUAL - Past Family History Father History Unknown: Yes Mother Family Medical History: Dementia, Hypertension Medications and Allergies Home Medications Medication Instructions Recorded Confirmed Type Citalopram Hydrobromide [CeleXA] 40 mg PO HS 05/22/16 05/31/21 History lamoTRIgine 100 mg PO HS 08/23/20 05/31/21 History Ascorbic Acid [Vitamin C] 250 mg PO DAILY 05/31/21 05/31/21 History Cannabidiol (Cbd) [Epidiolex] 1 dose SL DIRECTED PRN 05/31/21 05/31/21 History Multivit with Calcium,Iron,Min 1 each PO DAILY 05/31/21 05/31/21 History [Women's Multivitamin] QUEtiapine FUMARATE 100 mg PO HS 05/31/21 05/31/21 History QUEtiapine FUMARATE [SEROquel] 25 mg PO DAILY@0800,1500 05/31/21 05/31/21 History Vitamin D 1,350 mg PO DAILY 05/31/21 History Zinc (Unknown Dose) 1 tab PO DAILY 05/31/21 History Allergies Allergy/AdvReac Type Severity Reaction Status Date / Time No Known Allergies Allergy Verified 05/31/21 14:46
[2021-06-02 09:35] VITALS: TEMP 98
--- NOTE | 2021-06-02 10:14 | P.PCN ---
Date of Procedure: 06/02/21 Description of Procedure: PREOPERATIVE DIAGNOSIS: Colonoscopy screening. POSTOPERATIVE DIAGNOSIS: Colonoscopy screening. Diverticulosis, scattered. OPERATION: Colonoscopy to the cecum, ileocecal valve and appendiceal orifice. SURGEON: Mililcent Mcneal MD. ANESTHESIA: MAC. INDICATIONS: The patient is a 76-year-old female who presents for colonoscopy screening. Last colonoscopy over 5 years. Benefits and risks were described and informed consent was obtained. DESCRIPTION OF PROCEDURE: The patient had undergone Sutab prep. The patient had been brought into the operating room and laid in the left lateral decubitus position. After adequate intravenous sedation, the rectum was examined with 2% lidocaine jelly. No external hemorrhoids were encountered. The rectal tone was within normal limits. No lesions were palpated in the rectal vault. An Olympus colonoscope was advanced until the cecum, ileocecal valve and appendiceal orifice were clearly viewed. The prep was excellent. Scattered diverticulosis was encountered. No colonic polyps were found. No evidence of focal colitis was found. Retroflexion of the scope demonstrated grade 1 internal hemorrhoids without active bleeding or inflammation. The colon was desufflated. The patient had tolerated the procedure well. Withdrawal time was over 6 minutes. FINDINGS: Aronchick preparation quality scale 1 (1-5) Internal hemorrhoids, grade 1 No external prolapsed hemorrhoids. No arteriovenous malformations. No adenomatous polyps. No focal colitis. Sigmoid diverticulosis RECOMMENDATIONS: Lower endoscopy as needed Plan - Discharge Summary New Discharge Prescriptions: Continue Citalopram Hydrobromide [CeleXA] 40 mg PO HS QUEtiapine FUMARATE 100 mg PO HS Vitamin D 1,350 mg PO DAILY Zinc (Unknown Dose) 1 tab PO DAILY lamoTRIgine 100 mg PO HS QUEtiapine FUMARATE [SEROquel] 25 mg PO DAILY@0800,1500 Multivit with Calcium,Iron,Min [Women's Multivitamin] 1 each PO DAILY Ascorbic Acid [Vitamin C] 250 mg PO DAILY Cannabidiol (Cbd) [Epidiolex] 1 dose SL DIRECTED PRN PRN Reason: Pain Discharge Medication List Citalopram Hydrobromide [CeleXA] 40 mg PO HS 05/22/16 [History] lamoTRIgine 100 mg PO HS 08/23/20 [History] Ascorbic Acid [Vitamin C] 250 mg PO DAILY 05/31/21 [History] Cannabidiol (Cbd) [Epidiolex] 1 dose SL DIRECTED PRN 05/31/21 [History] Multivit with Calcium,Iron,Min [Women's Multivitamin] 1 each PO DAILY 05/31/21 [History] QUEtiapine FUMARATE 100 mg PO HS 05/31/21 [History] QUEtiapine FUMARATE [SEROquel] 25 mg PO DAILY@0800,1500 05/31/21 [History] Vitamin D 1,350 mg PO DAILY 05/31/21 [History] Zinc (Unknown Dose) 1 tab PO DAILY 05/31/21 [History] Follow up Appointment(s)/Referral(s): Millicent Mcneal MD [STAFF PHYSICIAN] - As Needed Patient Instructions/Handouts: Diverticulitis Diet (GEN), Diverticulosis (GEN), *Sur[facility] - (Anesthesia) Endoscopy Discharge Instructions, Colonoscopy (GEN) Discharge Disposition: HOME SELF-CARE
[2021-06-02 10:24] VITALS: RESP 16
[2021-06-02 10:30] VITALS: BP 133/61; PULSE 62
== END | disposition home or self-care (01) ==
LOC: ORWHC2ENDO 09:13
PROVIDERS: ATTEND Surgery Plastic and Reconstructive Surgery
DX: Z12.11 Encounter for screening for malignant neoplasm of colon (principal); K57.90 Diverticulosis of intestine, part unspecified, without perforation or abscess without bleeding; E07.9 Disorder of thyroid, unspecified; K21.9 Gastro-esophageal reflux disease without esophagitis; F17.210 Nicotine dependence, cigarettes, uncomplicated; M19.90 Unspecified osteoarthritis, unspecified site
CPT/HCPCS: G0121; J2001; J2704

== ENCOUNTER → 2022-08-29 | Outpatient (CLI) | payer MEDICARE ==
--- NOTE | 2022-08-29 14:55 | BD ---
EXAMINATION TYPE: Axial Bone Density DATE OF EXAM: 08/29/2022 CLINICAL HISTORY: 77 years old Female. ICD-10 CODE: M81.0 AGE RELATED OSTEOPOROSIS WITHOUT CURRENT P ATHOLOGICAL Height: 62 Weight: 150.1 FRAX RISK QUESTIONS: Alcohol (3 or more units per day): no Family History (Parent hip fracture): no Glucocorticoids (More than 3mos): no (Ex: prednisone, prednisolone, methylprednisolone, dexamethasone, and hydrocortisone). History of Fracture in Adulthood: yes Secondary Osteoporosis: 1. Type 1 Diabetes: no 2. Hyperthyroidism: no 3. Menopause before 45: yes 4. Malnutrition: no 5. Chronic liver disease: no Rheumatoid Arthritis: no Current Tobacco Use: yes RISK FACTORS HISTORY OF: History of Wrist Fracture: left wrist When: 15 years ago Surgery to Spine/Hip(right/left)/Wrist (right/left): no Family History of Osteoporosis: no Active: yes Diet low in dairy products/other sources of calcium: yes Postmenopausal woman: yes Lost more than 2 inches in height since high school: no MEDICATIONS: Additional History: EXAM MEASUREMENTS: Bone mineral densitometry was performed using the [employer] System. Bone mineral density as measured about the Lumbar spine is: ----- L1-L4(G/cm2): 1.179 T Score Values are as follows: ----- L1: -0.1 ----- L2: -0.1 ----- L3: -0.1 ----- L4: 0.3 ----- L1-L4: 0.0 Z Score Values are as follows: ----- L1: 1.6 ----- L2: 1.6 ----- L3: 1.6 ----- L4: 2.0 ----- L1-L4: 1.7 Bone mineral density has: increased 2.1 % since study of: 08.27.2020 Bone mineral density about the R hip (g/cm2): 0.717 Bone mineral density about the L hip (g/cm2): 0.767 T Score values are as follows: -----R Neck: -2.4 -----L Neck: -2.4 -----R Total: -2.3 -----L Total: -1.9 Z Score values are as follows: -----R Neck: -0.4 -----L Neck: -0.3 -----R Total: -0.4 -----L Total: 0.0 Bone mineral density has: decreased -2.1 % since study of: 08.27.2020 FRAX%s: The graph provided illustrates a 28.0% chance for a major osteoporotic fx and a 12.9% chance for the hips probability for fx in 10 years time. IMPRESSION: Osteopenia (T Score between -2.5 and -1). There is slightly increased risk of fracture and the patient may be considered for treatment. Re-Screen 2-5 years. NOTE: T-SCORE=SD OF THE YOUNG ADULT MEAN.
--- NOTE | 2022-08-29 15:34 | US ---
EXAMINATION TYPE: US thyroid st tissue head/neck DATE OF EXAM: 08/29/2022 COMPARISON: Multiple ultrasounds most recent 08/02/2020 CLINICAL INDICATION: Female, 77 years old with history of E04.1 Nontoxic single thyroid nodule; f/u GLAND SIZE: Right Lobe: 4.0 x 1.2 x 2.2 cm Overall Parenchyma: heterogenous Left Lobe: 2.9 x 1.0 x 1.6 cm Overall Parenchyma: heterogenous Isthmus Thickness: 0.2 cm NODULES RIGHT: # of nodules measured on right: 2 1. 0.7 X 0.6 x 0.4 cm, upper , Prior size: 0.7 x 0.5 x 0.4 cm TIRADS Score: 4 TIRADS Category 4: Moderately Suspicious Composition: Solid or almost completely solid (2 points). Echogenicity: Hypoechoic (2 points). Shape: Wider than tall (0 points). Margin: Smooth (0 points). Echogenic foci: None or large comet-tail artifacts (0 points) Recommendation: If >1.5cm: FNA; If >1cm: Follow up at 1,2, 3,5 years 2. 0.7 X 0.7 x 0.5 cm, mid, Prior size: 0.6 x 0.4 x 0.8 cm TIRADS Score: 4 TIRADS Category 4: Moderately Suspicious Composition: Solid or almost completely solid (2 points). Echogenicity: Hypoechoic (2 points). Shape: Wider than tall (0 points). Margin: Smooth (0 points). Echogenic foci: None or large comet-tail artifacts (0 points) Recommendation: If >1.5cm: FNA; If >1cm: Follow up at 1,2, 3,5 years LEFT: # of nodules measured on left: 1 1. 0.7 X 0.6 x 0.8 cm, mid , Prior size: 0.8 x 0.7 x 0.6 cm TIRADS Score: 3 TIRADS Category 3: Mildly Suspicious Composition: Solid or almost completely solid (2 points). Echogenicity: Hyperechoic or isoechoic (1 point). Shape: Wider than tall (0 points). Margin: Smooth (0 points). Echogenic foci: None or large comet-tail artifacts (0 points) Recommendation: If >2.5cm: FNA; If >1.5cm: Follow up at 1,3,5 years ISTHMUS: # of nodules measured in the isthmus: 0 Bilateral neck scanned, no evidence of lymphadenopathy. IMPRESSION: Stable thyroid nodules given differences in technique. Consider follow-up in one year.
== END | disposition home or self-care (01) ==
LOC: RADBDWWP 13:20
PROVIDERS: ATTEND Family Medicine
DX: E04.2 Nontoxic multinodular goiter (principal); M85.89 Other specified disorders of bone density and structure, multiple sites; M81.0 Age-related osteoporosis without current pathological fracture; Z78.0 Asymptomatic menopausal state
CPT/HCPCS: 76536; 77080

== ENCOUNTER → 2022-10-12 | Outpatient (CLI) | payer MEDICARE ==
--- NOTE | 2022-10-12 12:03 | US ---
EXAMINATION TYPE: US arterial LE single level DATE OF EXAM: 10/12/2022 8:52 AM CLINICAL INDICATION: Female, 77 years old with history of I70.292 ATHEROSCLEROSIS, M65.872 PAIN LT FO OT; pain left foot for months, was swollen but is back to normal now History of: Smoker: y, current Hypertension: no, but pressures were high on todays exam Diabetic: n Hyperlipidemia: n TIA/CVA: n Previous Vascular Surgery: n CAD: n PA: n Vascular Ulcers: n Claudication: n Gangrene: n Doppler Waveforms: Right: Multiphasic Left: Multiphasic Right Brachial Pressure: 156 Left Brachial Pressure: 161 Ankle-Brachial Indices: Right: 0.9 Left: 1.0 Toe Brachial Indices: Right: 1.0 Left: 1.1 IMPRESSION: 1. Normal bilateral EN indices.
== END | disposition home or self-care (01) ==
LOC: RADUSWWP 08:23
PROVIDERS: ATTEND Podiatrist
DX: I70.292 Other atherosclerosis of native arteries of extremities, left leg (principal); M65.872 Other synovitis and tenosynovitis, left ankle and foot; F17.210 Nicotine dependence, cigarettes, uncomplicated
CPT/HCPCS: 93922

== ENCOUNTER → 2023-08-24 | Outpatient (CLI) | payer MEDICARE ==
--- NOTE | 2023-08-25 16:54 | XR ---
EXAMINATION TYPE: XR foot complete RT DATE OF EXAM: 08/24/2023 COMPARISON: None HISTORY: Puncture wound right foot TECHNIQUE: Three-view right foot FINDINGS: There is mild degenerative joint change with loss of joint space first metatarsophalangeal joint space. No acute fractures or dislocations evident. No radiopaque foreign body evident. Tiny plantar calcanea l heel spur is present. IMPRESSION: 1. No radiopaque foreign body abnormality within the foot. 2. No acute osseous abnormality right foot
== END | disposition home or self-care (01) ==
LOC: RADXRMAIN 15:58
PROVIDERS: ATTEND Nurse Practitioner Family
DX: S91.331A Puncture wound without foreign body, right foot, initial encounter (principal); X58.XXXA Exposure to other specified factors, initial encounter

== ENCOUNTER → 2024-06-26 | Outpatient (CLI) | payer MEDICARE ==
--- NOTE | 2024-06-26 08:35 | XR ---
EXAMINATION TYPE: XR chest 2V DATE OF EXAM: 06/26/2024 CLINICAL INDICATION: Female, 79 years old with history of J44.1 CHRONIC OBSTRUCTIVE PULMONARY DISEASE W (ACU, TECHNIQUE: Frontal and lateral views of the chest are obtained. COMPARISON: Chest x-ray May 22, 2016 FINDINGS: There is no focal air space opacity, pleural effusion, or pneumothorax seen. Perhaps mild underlying emphysematous change. The cardiac silhouette size is upper limits of normal. The osseous structures are intact. IMPRESSION: No acute cardiopulmonary process. [facility], , 06/26/2024 8:33 AM
== END | disposition home or self-care (01) ==
LOC: RADXRMAIN 07:58
PROVIDERS: ATTEND Family Medicine
DX: J44.1 Chronic obstructive pulmonary disease with (acute) exacerbation (principal)
CPT/HCPCS: 71046